=== PATIENT | female | born 1975 | race American Indian/Alaskan Native ===

== ENCOUNTER 2019-09-02 14:20 | Emergency (ER) | payer OTHER ==
[2019-09-02 14:27] VITALS: BP 125/81
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
== END 2019-09-02 14:53 | disposition home or self-care (01) ==
LOC: ED 14:20
DX: M79.18 Myalgia, other site (principal); Z88.8 Allergy status to other drugs, medicaments and biological substances; Z90.49 Acquired absence of other specified parts of digestive tract; Z79.899 Other long term (current) drug therapy; V89.2XXA Person injured in unspecified motor-vehicle accident, traffic, initial encounter; Y93.89 Activity, other specified; Y92.488 Other paved roadways as the place of occurrence of the external cause; Y99.8 Other external cause status
CPT/HCPCS: 99282

== ENCOUNTER 2019-11-13 19:33 | Emergency (ER) | payer SELFPAY ==
--- NOTE | 2019-11-13 20:21 | XRay Report ---
RIGHT WRIST 4 VIEW(S) INDICATION / CLINICAL INFORMATION: Status post fall COMPARISON: None available. FINDINGS: BONES / JOINT(S): No acute fracture or subluxation of the wrist. There is a mildly displaced oblique fracture of the distal shaft of the little finger metacarpal. No significant arthritis. 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 SOFT TISSUES: Soft tissue swelling adjacent to the little finger metacarpal fracture. ADDITIONAL FINDINGS: None. Signer Name: Dutch Gan MD Signed: 11/13/2019 8:17 PM Workstation Name: [id number]
--- NOTE | 2019-11-13 21:02 | Emergency Department Report ---
Upper Extremity - HPI Chief Complaint: Extremity Injury, Upper Stated Complaint: LOSS OF FEELING IN RIGHT HAND AND ARM Upper Extremity: Right Forearm (Pain and swelling), Right Wrist (pain and swelling), Right Little Finger (pain and swelling) Occurred When: >5 Days Mechanism: Fall, Other (slipped and fell down the stairs) Symptoms: Yes Pain with Movement, Yes Deformity, Yes Limited Range of Movement (due to pain), Yes Swelling, Yes Bruising/Ecchymosis, No Numbness, No Weakness, No Laceration or Abrasion Other History: Patient is a 44-year-old -[place] female with no past medical history presents to the ED with complaint of acute onset persistent severe right hand and wrist pain with swelling after she slipped and fell down the stairs landing on the right hand about 1 week ago. Patient states that the pain and the swelling worsened in the last 4 days. Patient states that she was expecting that her primary care physician will be able to see her sooner but she cannot get an appointment until the next 1 month. Patient denies numbness and tingling or weakness of right hand, head or neck injuries, dizziness, syncope, seizures, nausea and vomiting, alcohol intoxication at the time of the fall, loss of consciousness, back pain and hip pain, chest pain or shortness of breath. ED Review of Systems ROS: Stated complaint: LOSS OF FEELING IN RIGHT HAND AND ARM Other details as noted in HPI Constitutional: denies: chills, fever Eyes: denies: eye pain, eye discharge, vision change ENT: denies: ear pain, throat pain Respiratory: denies: cough, shortness of breath, wheezing Cardiovascular: denies: chest pain, palpitations Endocrine: no symptoms reported Gastrointestinal: denies: abdominal pain, nausea, diarrhea Genitourinary: denies: urgency, dysuria, discharge Musculoskeletal: joint swelling (Right hand swelling), arthralgia (Right hand pain, mildly deformed right fifth metacarpal, right wrist pain). denies: back pain Skin: denies: rash, lesions Neurological: denies: headache, weakness, paresthesias Psychiatric: denies: anxiety, depression Hematological/Lymphatic: denies: easy bleeding, easy bruising ED Past Medical Hx - Past Medical History Previous Medical History?: No - Surgical History Hx Appendectomy: Yes Additional Surgical History: BREAST IMPLANTS - Social History Smoking Status: Never Smoker Substance Use Type: Alcohol - Medications Home Medications: Home Medications Medication Instructions Recorded Confirmed Last Taken Type Cyclobenzaprine [Flexeril] 10 mg PO TID PRN #10 tablet 09/02/19 Unknown Rx Naproxen [Naprosyn] 500 mg PO BID PRN #20 tablet 09/02/19 Unknown Rx predniSONE [Deltasone] 20 mg PO DAILY #5 tablet 09/02/19 Unknown Rx Acetaminophen/Codeine [Tylenol 1 tab PO Q6H PRN #12 tab 11/13/19 Unknown Rx /Codeine # 3 tab] Cyclobenzaprine [Flexeril] 10 mg PO Q8H PRN #15 tablet 11/13/19 Unknown Rx Ibuprofen [Motrin] 600 mg PO Q8H PRN #30 tablet 11/13/19 Unknown Rx Upper Extremity Exam - Exam General: Vital signs noted. No distress. Alert and acting appropriately. Head and Torso: No HEENT Abnormality, No Neck Tenderness, No Chest/Lungs Abnormality, No Abdominal Tenderness, No Back Tenderness Shoulder Exam: Yes Normal Range of Motion in Shoulder, No Shoulder Tenderness, No Clavicle Tenderness, No Shoulder Deformity, No AC Joint Tenderness Arm Exam: No Arm/Humerus Tenderness, No Arm Deformity Elbow: No Elbow Tenderness, No Normal Range of Motion in Elbow, No Elbow Deformity Forearm: No Forearm Tenderness, No Forearm Deformity, No Pain with Pronation, No Pain with Supination Wrist: Yes Wrist Tenderness (right), No Normal ROM in Wrist (limited due to pain), No Wrist Deformity, No Snuffbox Tenderness, No Pain with Axial Thumb Compression Hand: Yes Hand Tenderness (right), Yes Hand Deformity (right 5th metacarpal), Yes Digit Tenderness (right 5th finger), No Normal ROM in Digit(s) (Limited ROM due to pain), No Digit(s) Deformity, No Tendon Dysfunction CMS Exam: No Broken Skin, No Normal Distal Pulses, No Normal Capillary Refill, No Normal Distal Sensation ED Course Vital Signs 11/13/19 19:41 Temperature 98.2 F Pulse Rate 75 Respiratory 18 Rate Blood Pressure 125/83 [Right] O2 Sat by Pulse 98 Oximetry ED Medical Decision Making - Radiology Data Radiology results: report reviewed, image reviewed Findings [facility] [address] [place] [address] XRay Report Signed Patient: MARGY NAM MR#: [id number] : 1975 Acct:[id number] Age/Sex: 44 / F ADM Date: 11/13/19 Loc: ED Attending Dr: Ordering Physician: MARY JOE MD Date of Service: 11/13/19 Procedure(s): XR wrist 3+V RT Accession Number(s): [id number] cc: MARY JOE MD Fluoro Time In Minutes: RIGHT WRIST 4 VIEW(S) INDICATION / CLINICAL INFORMATION: Status post fall COMPARISON: None available. FINDINGS: BONES / JOINT(S): No acute fracture or subluxation of the wrist. There is a mildly displaced oblique fracture of the distal shaft of the little finger metacarpal. No significant arthritis. Incidental note of lunotriquetral coalition, an anatomic variant. SOFT TISSUES: Soft tissue swelling adjacent to the little finger metacarpal fracture. ADDITIONAL FINDINGS: None. Signer Name: Dutch Gan MD Signed: 11/13/2019 8:17 PM Workstation Name: [id number] Transcribed By: DT Dictated By: Harsh Gan MD Electronically Authenticated By: Harsh Gan MD Signed Date/Time: 11/13/192016 DD/ 15 TD/TT: - Medical Decision Making This is a 44-year-old -[place] female with no past medical history presents to the ED with complaint of acute onset persistent severe right hand and wrist pain with swelling after she slipped and fell down the stairs landing on the right hand about 1 week ago. Patient states that the pain and the swelling worsened in the last 4 days. Patient states that she was expecting that her primary care physician will be able to see her sooner but she cannot get an appointment until the next 1 month. In the ED, patient is alert and oriented x3 and is not in distress. Patient was treated for pain in the ED and left wrist x-ray including a hand showed no acute fracture or subluxation of the wrist but a mildly displaced oblique fracture of the distal shaft of the little finger metacarpal. No significant arthritis. Incidental note of lunotriquetral coalition, an anatomic variant. There is soft tissue swelling adjacent to the little finger metacarpal fracture. Patient right hand was splinted with ulnar gutter splint and the patient's arm immobilized in an arm sling, and patient was referred to the orthopedic surgeon Dr. Hirsch for follow-up the next day. Patient is advised to contact Dr. Hirsch's office first thing in the morning on Thursday November 14, 2019 to schedule a follow-up appointment. Patient was advised to return to the ED immediately if symptoms get worse. - Differential Diagnosis wrist fracture; hand fracture; hand sprain; wrist sprain Critical care attestation.: If time is entered above; I have spent that time in minutes in the direct care of this critically ill patient, excluding procedure time. ED Disposition Clinical Impression: Displaced fracture of neck of fifth metacarpal bone of right hand Qualifiers: Encounter type: initial encounter Fracture type: closed Qualified Code(s): S62.336A - Displaced fracture of neck of fifth metacarpal bone, right hand, initial encounter for closed fracture Sprain of right wrist Qualifiers: Encounter type: initial encounter Qualified Code(s): S63.501A - Unspecified sprain of right wrist, initial encounter Contusion of right hand including fingers Qualifiers: Encounter type: initial encounter Qualified Code(s): S60.221A - Contusion of right hand, initial encounter; S60.00XA - Contusion of unspecified finger without damage to nail, initial encounter Disposition: - TO HOME OR SELFCARE Is pt being admited?: No Does the pt Need Aspirin: No Condition: Stable Instructions: Boxer Fracture (ED), Hand Fracture (ED), Wrist Injury (ED), Wrist Sprain (ED) Additional Instructions: Take medication with food, drink plenty of fluids and follow-up with the orthopedic surgeon Dr. Hirsch for further evaluation the next 2 to [address] Hirsch's office first thing in the morning on Thursday November 14, 2019 to schedule a follow-up appointment for reevaluation. Return to the ED immediately if symptoms get worse. Prescriptions: Cyclobenzaprine [Flexeril] 10 mg PO Q8H PRN #15 tablet PRN Reason: Muscle Spasm Ibuprofen [Motrin] 600 mg PO Q8H PRN #30 tablet PRN Reason: Pain Acetaminophen/Codeine [Tylenol /Codeine # 3 tab] 1 tab PO Q6H PRN #12 tab PRN Reason: Pain , Severe (7-10) Referrals: PRIMARY CAREMD [Primary Care Provider] - 3-5 Days WILMA HIRSCH MD [Staff Physician] - 24 Hours Time of Disposition: 22:15 Print Language: NAMIBIAN
[2019-11-13] MEDS ORDERED: IBUPROFEN 600 MG TAB PO ONE (21:16)
[2019-11-13] MEDS ORDERED: ACETAMINOPHEN 500 MG TAB PO ONE (21:17)
== END 2019-11-13 22:55 | disposition home or self-care (01) ==
LOC: ED 19:33
DX: S62.336A Displaced fracture of neck of fifth metacarpal bone, right hand, initial encounter for closed fracture (principal); S63.501A Unspecified sprain of right wrist, initial encounter; Z90.49 Acquired absence of other specified parts of digestive tract; Z98.890 Other specified postprocedural states; X58.XXXA Exposure to other specified factors, initial encounter; Y93.89 Activity, other specified; Y92.89 Other specified places as the place of occurrence of the external cause; Y99.8 Other external cause status